=== PATIENT | female | born 2005 | race Caucasian/White ===

== ENCOUNTER 2024-02-19 09:17 | Day surgery (SDC) | payer BC ==
[~2024-02-19] VITALS: Ht 163.8 cm; Wt 70.9 kg
[~2024-02-19 09:17] MED LIST: BACTRIM PED152.22 ML PO; CEPHALEXIN250 MG/5 M PO; LR 1,000 ML IV SCH; Ondansetron 4 MG/2 ML VIAL IV PRN
[2024-02-19] MEDS ORDERED: INDERAL 20MG20 MG PO (09:57)
[2024-02-19] MEDS ORDERED: DEPO-PROVE150 MG/1 M IM (09:58)
[2024-02-19] MEDS ORDERED: FLONASEALLERGY NS (09:59)
[2024-02-19] MEDS ORDERED: BENTYL 10MG10 MG/CAP PO (10:00)
[2024-02-19] MEDS ORDERED: ZYRTEC 10MG10 MG PO (10:00)
[2024-02-19] MEDS ORDERED: TYLENOL 500MG500 MG PO (10:01)
[2024-02-19 10:13] VITALS: BP 129/88; PULSE 93; TEMP 97.6
[2024-02-19] MEDS ORDERED: Lidocaine PF 2% (20 MG/ML) 5 ML VIAL ONE (10:29)
[2024-02-19 10:56] VITALS: TEMP 98
[2024-02-19 11:10] VITALS: BP 118/79; PULSE 89
[2024-02-19 11:25] VITALS: BP 119/89; PULSE 89
[2024-02-19 11:40] VITALS: BP 114/89; PULSE 85
--- NOTE | 2024-02-19 11:45 | NUR ---
1110 PATIENT RETURNS TO [facility] VIA CART. PT AWAKE AND ALERT. RESPIRATIONS UNLABORED. AMBULATED TO RECLINER CHAIR WITH 2:1 SBA. PT DENIES NAUSEA OR ABDOMINAL PAIN. HOOKED UP TO MONITOR AND VS OBTAINED. CALL LIGHT AT SIDE AND MOTHER PRESENT. 1115 PATIENT TOLERATING PEPSI AND CHRISTINA CRACKERS WITHOUT NAUSEA OR DIFFICULTY SWALLOWING. 1120 IN ROOM SPEAKING WITH PATIENT. 1135 D/C INSTRUCTIONS REVIEWED WITH PATIENT. PT VERBALIZED UNDERSTANDING AND A COPY OF INSTRUCTIONS PROVIDED IN D/C FOLDER. 1145 PATIENT DRESSES SELF. 1200 PATIENT DISCHARGED FROM UNIT VIA W/C TO A PERSONAL VEHICLE. PT LEFT HOSPITAL IN STABLE CONDITION.
== END 2024-02-19 12:00 | disposition home or self-care (01) ==
LOC: SDCO 09:17
DX: K29.30 Chronic superficial gastritis without bleeding (principal); K62.5 Hemorrhage of anus and rectum; K64.0 First degree hemorrhoids; R19.7 Diarrhea, unspecified; Z79.1 Long term (current) use of non-steroidal anti-inflammatories (NSAID)
CPT/HCPCS: J2704; J7120